=== PATIENT | male | born 1955 ===

== ENCOUNTER 2019-06-12 19:01 | Emergency (ER) | payer OTHER ==
[2019-06-12 19:18] VITALS: BP 149/84
--- NOTE | 2019-06-12 19:24 | UC ---
Lower Extremity/Ankle HPI - HPI Summary HPI Summary: 63 yo with onset of right knee pain today, without swelling, after a week of increased activity (66mi on his Fitbit compared to average 50) with additional repetitive ladder climbing yesterday. Has used ibuprofen 1400mg today without significant improvement. - History of Current Complaint Chief Complaint: UCLowerExtremity Stated Complaint: R KNEE PAIN Time Seen by Provider: 06/12/19 19:21 Hx Obtained From: Patient Onset/Duration: Gradual Onset, Lasting Hours - about 12 Severity Initially: Moderate Severity Currently: Moderate Pain Intensity: 2 Aggravating Factor(s): Other - stair climbing. Alleviating Factor(s): Rest Able to Bear Weight: Yes - Risk Factors Gout Risk Factors: Negative DVT Risk Factors: Negative Septic Arthritis Risk Factor: Negative - Allergies/Home Medications Allergies/Adverse Reactions: Allergies Allergy/AdvReac Type Severity Reaction Status Date / Time No Known Allergies Allergy Verified 06/12/19 19:18 Home Medications: Home Medications Multivitamin,Ther and Minerals [Vitamins & Minerals] 1 tab PO DAILY 06/12/19 [ History Confirmed 06/12/19] Prostate Medication 1 tab PO DAILY 06/12/19 [History Confirmed 06/12/19] PMH/Surg Hx/FS Hx/Imm Hx Previously Healthy: Yes - No hx of hypertension - Surgical History Surgical History: Yes Surgery Procedure, Year, and Place: L hip replacement - Family History Known Family History: Positive: Non-Contributory - Social History Occupation: Employed Full-time - works at [employer] Lives: With Family Alcohol Use: Weekly Substance Use Type: None Smoking Status (MU): Current Some Day Smoker Type: Cigars Review of Systems All Other Systems Reviewed And Are Negative: Yes Constitutional: Positive: Negative Skin: Positive: Negative Eyes: Positive: Negative Cardiovascular: Positive: Other - typical BP is 120/80. Negative: Palpitations , Chest Pain Genitourinary: Positive: Negative Motor: Positive: Negative Neurovascular: Positive: Negative Musculoskeletal: Positive: Arthralgia, Decreased ROM. Negative: Calf Tenderness Neurological: Positive: Negative Psychological: Positive: Negative Is Patient Immunocompromised?: No Physical Exam Triage Information Reviewed: Yes Appearance: Well-Appearing, Pain Distress - mild to moderate. Vital Signs: Initial Vital Signs Temp 98.4 F 06/12/19 19:14 Pulse 74 06/12/19 19:14 Resp 16 06/12/19 19:14 BP 149/84 06/12/19 19:14 Pulse Ox 100 06/12/19 19:14 ENT: Positive: Normal ENT inspection Respiratory: Positive: Lungs clear, Normal breath sounds Cardiovascular: Positive: RRR, No Murmur Musculoskeletal Exam: Other - gait antalgic. Musculoskeletal: Positive: Strength Intact, No Edema, ROM Limited @ - right knee with active flexion decreased to 45 degrees due to pain. Negative Lachmann' s, neg MacMurray's. No instability Neurological Exam: Normal Neurological: Positive: Alert, Muscle Tone Normal Psychological Exam: Normal Skin Exam: Normal Lower Extremity Course/Dx - Course Course Of Treatment: ice and anti-inflammatories, PT referral for tx of patellar tendonitis. - Differential Dx/Diagnosis Differential Diagnosis/HQI/PQRI: Bursitis, Compartment Syndrome, Sprain, Strain , Tendonitis Provider Diagnosis: Patellar tendonitis of right knee Discharge ED - Sign-Out/Discharge Documenting (check all that apply): Patient Departure All imaging exams completed and their final reports reviewed: No Studies - Discharge Plan Condition: Stable Disposition: HOME Prescriptions: Naproxen [Naproxen 500 mg tab] 500 mg PO BID PRN #50 tablet PRN Reason: Pain - Moderate Patient Education Materials: Patellar Tendinitis (ED) Referrals: Jan Pacheco MD [Primary Care Provider] - Additional Instructions: STOP use of ibuprofen and change to naproxen 500mg twice daily. Take it with food, and stop use if you develop heartburn or stomach upset. Regular ice packs will help with pain---suggest 20 minutes every 2 to 3 hours. Avoid stair climbing. You have a referral for physical therapy for treatment if pain does not resolve in 4 or 5 days. - Billing Disposition and Condition Condition: STABLE Disposition: Home
== END 2019-06-12 20:01 | disposition home or self-care (01) ==
LOC: UCEAST 19:01
DX: M76.51 Patellar tendinitis, right knee (principal); F17.290 Nicotine dependence, other tobacco product, uncomplicated
CPT/HCPCS: 99202; G0463